=== PATIENT | female | born 1970 | race Caucasian/White ===

== ENCOUNTER 2018-09-27 15:25 | Emergency (ER) | payer OTHER, SELFPAY ==
[2018-09-27 15:27] VITALS: BP 160/89; PULSE 83; RESP 18; TEMP 36.6; O2SAT 100; BMI 34.9
[2018-09-27 15:30] VITALS: TEMP 36.6; O2SAT 100
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
[2018-09-27] MEDS: Diphth,Pertuss(Acell),Tet Vac 0.5 ML Vial IM (16:40)
[2018-09-27 17:32] VITALS: PULSE 88; RESP 16; O2SAT 100
[2018-09-27 18:54] VITALS: BP 148/74; PULSE 71; RESP 16; O2SAT 98
== END 2018-09-27 18:56 | disposition home or self-care (01) ==
PROVIDERS: Emergency Provider Emergency Medicine
DX: S02.31XA Fracture of orbital floor, right side, initial encounter for closed fracture (principal); S01.111A Laceration without foreign body of right eyelid and periocular area, initial encounter; S00.31XA Abrasion of nose, initial encounter; S00.511A Abrasion of lip, initial encounter; T14.8XXA Other injury of unspecified body region, initial encounter; Z72.0 Tobacco use; V43.52XA Car driver injured in collision with other type car in traffic accident, initial encounter; W22.11XA Striking against or struck by driver side automobile airbag, initial encounter; Y93.I9 Activity, other involving external motion; Y92.410 Unspecified street and highway as the place of occurrence of the external cause; Y99.8 Other external cause status
CPT/HCPCS: 12011; 70450; 70486; 73140; 90715; 99285

== ENCOUNTER 2018-09-29 17:37 | Emergency (ER) | payer OTHER, SELFPAY ==
[2018-09-29 17:39] VITALS: BP 135/76; PULSE 105; RESP 17; TEMP 36.8; O2SAT 96; BMI 34.1
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
--- NOTE | 2018-09-29 18:09 | ED.DEP ---
ED Disposition - Plan for ED Patient: Instructions: ED Fx Foot Prescriptions: Oxycodone HCl/Acetaminophen [Percocet 5/325] 1 tab PO Q6H PRN PRN 3 Days #12 tab PRN Reason: Pain Referrals: Care Physician,No Primary [Primary Care Provider] - Santiago Barnes DPM [STAFF PHYSICIAN] - 3-5 Days
== END 2018-09-29 18:30 | disposition home or self-care (01) ==
LOC: ED 18:18
PROVIDERS: Emergency Provider Emergency Medicine
DX: S92.331A Displaced fracture of third metatarsal bone, right foot, initial encounter for closed fracture (principal); Z72.0 Tobacco use; V43.52XA Car driver injured in collision with other type car in traffic accident, initial encounter; Y93.I9 Activity, other involving external motion; Y92.410 Unspecified street and highway as the place of occurrence of the external cause; Y99.8 Other external cause status
CPT/HCPCS: 73630; 99284

== ENCOUNTER 2022-11-30 16:58 | Emergency (ER) | payer BC, SELFPAY ==
[2022-11-30 16:59] VITALS: BP 140/90; PULSE 93; RESP 16; TEMP 36.8; O2SAT 98; BMI 36.6
--- NOTE | 2022-11-30 18:47 | CT_ITS ---
INDICATION: headache EXAMINATION: CT BRAIN - CT Head or Brain W/O Contrast Injection TECHNIQUE: Multiple axial images were obtained of the head without intravenous contrast. A radiation dose optimization technique was used for this scan. IV Contrast dosage and agent: None. RADIATION DOSAGE (If Supplied By Facility): CTDIvol = ( 44.99 ) mGy, DLP = ( 1272.98 ) mGycm COMPARISON: FINDINGS: BRAIN PARENCHYMA: No intra- or extra-axial hemorrhage. No evidence of acute infarct. No intracranial mass or mass effect. There is preservation of the amaya/white matter interface. Posterior fossa structures are unremarkable. CSF SPACES: Appropriate for age. No hydrocephalus. Basal cisterns are patent. CALVARIUM, SKULL BASE, PARANASAL SINUSES AND MASTOID AIR CELLS: Clear. No discrete lytic or blastic abnormalities. ORBITS: Both globes, extraocular muscles, optic nerves and retrobulbar fat appear unremarkable. ASPECTS Score for Acute Strokes: 10 CT/Brain/Head without Contrast IMPRESSION: Negative Brain CT without contrast. Electronically Signed: Vel Archer MD, DERREK at 19:24 EDT ,
--- NOTE | 2022-11-30 18:47 | CT_ITS ---
INDICATION: neck pain EXAMINATION: CT CERVICAL SPINE - CT Spine Cervical W/O Contrast Injection TECHNIQUE: Helically acquired images were obtained of the cervical spine. 2D reformatted images were reviewed. A radiation dose optimization technique was used for this scan. IV Contrast dosage and agent: None. RADIATION DOSAGE (If Supplied By Facility): CTDIvol = ( 23.33 ) mGy, DLP = ( 1272.98 ) mGycm COMPARISON: FINDINGS: VERTEBRAE: Mild reversal of cervical lordosis due to degenerative disc disease. Mild disc osteophyte C4-5 and moderate C5-6. Moderate bilateral neural foraminal encroachment C5-6. No fracture or traumatic subluxation. No discrete lytic or blastic abnormality. Normal alignment. Normal craniocervical junction and cervicothoracic junction. DISCS and SPINAL CANAL: Loss of disc space height C4-5 severe C5-6. No critical stenosis. NECK SOFT TISSUES: No prevertebral soft tissue swelling. There is no cervical adenopathy. LUNG APICES: Clear. CT/Spine Cervical without Contras IMPRESSION: No evidence of acute cervical spinal fracture or spondylolisthesis. Electronically Signed: Vel Archer MD, DERREK at 19:36 EDT Reading Location ID and State: [facility] / [place] Tel , Service support ,
--- NOTE | 2022-11-30 18:50 | EDS_ITS ---
HPI <LEEANNA Heath - Last Filed: 11/30/22 21:12> History of Present Illness Chief Complaint: Other, Pain/Inj Narrative Narrative: 52-year-old female with no significant PMH presents with a headache and neck pain over the last 2 weeks. She feels like front of her neck and the back of her scalp is swollen. She briefly had a runny nose and sore throat so she thought it was allergies and tried to wait it out but even though these symptoms resolved she still has the pain. She gets a bitemporal throbbing with head pressure and her vision seems blurry for a second when moving her eyes. She has no visual field cuts or deficits. She has no fever or chills. She has bad teeth but denies dental pain or difficulty swallowing or breathing. She has been taking aspirin for the pain. She went to urgent care who sent her here for evaluation. PFSH <LEEANNA Heath - Last Filed: 11/30/22 21:12> PFSH Medical History no medical history Home Medications cyclobenzaprine 10 mg tablet 10 mg PO TID PRN Muscle Spasm #20 TABLETS 11/30/22 [Rx Last Taken Unknown] naproxen 500 mg tablet (Naprosyn) 500 mg PO BID PRN pain #20 tabs 11/30/22 [Rx Last Taken Unknown] Allergy/AdvReac Type Severity Reaction Status Date / Time morphine Allergy Rash Verified 09/29/18 17:38 hydrocodone bitartrate AdvReac Nausea Verified 11/30/22 17:01 [From Vicodin] Social History Smoking Status: Current every day smoker tobacco type: cigarettes ROS <LEEANNA Heath - Last Filed: 11/30/22 21:12> ROS ED ROS Narrative Constitutional: Negative for fever, chills, malaise. ENT: Negative for sore throat, ear pain. CVS: Negative for palpitations, chest pain, syncope. Respiratory: Negative for shortness of breath, cough. GI: Negative for abdominal pain, nausea, vomiting. Neuro: Positive for headache, negative for motor/sensory dysfunction. EXAM <LEEANNA Heath Last Filed: 11/30/22 21:12> Physical Exam Narrative Exam Narrative: CONST: Patient sitting in no acute distress. EYES: Normal inspection. PERRLA, EOMI. ENT: Normal inspection, moist mucous membranes. Multiple missing teeth and poor dentition but she has no dental tenderness, no signs of periapical abscess, no trismus or tongue elevation, sublingual space is soft, airway patent with midline uvula. NECK: Normal inspection. Trachea midline, no trismus, no palpable lymphadenopathy. RESP: No respiratory distress, CTAB. CVS: Regular rate and rhythm, no murmur, no gallop. SKIN: Color normal, no rash, warm, dry, intact. EXTREMITIES: Normal appearance, no pedal edema. NEURO: Oriented x4. PSYCH: Normal affect. Const Vital Signs: 11/30/22 16:59 11/30/22 18:16 11/30/22 20:00 Temperature 98.2 F Temperature Source Temporal Pulse Rate 93 75 Respiratory Rate 16 18 Respiratory Effort Normal Non-Labored Blood Pressure 140/90 H Blood Pressure Mean 106 Pulse Ox 98 97 Oxygen Delivery Method Room Air Room Air 11/30/22 21:46 Temperature Temperature Source Pulse Rate 76 Respiratory Rate 18 Respiratory Effort Blood Pressure 126/68 H Blood Pressure Mean Pulse Ox 98 Oxygen Delivery Method <Dr. Fitz Feldman DO - Last Filed: 11/30/22 21:49> Physical Exam Const Vital Signs: 11/30/22 16:59 11/30/22 18:16 11/30/22 20:00 Temperature 98.2 F Temperature Source Temporal Pulse Rate 93 75 Respiratory Rate 16 18 Respiratory Effort Normal Non-Labored Blood Pressure 140/90 H Blood Pressure Mean 106 Pulse Ox 98 97 Oxygen Delivery Method Room Air Room Air 11/30/22 21:46 Temperature Temperature Source Pulse Rate 76 Respiratory Rate 18 Respiratory Effort Blood Pressure 126/68 H Blood Pressure Mean Pulse Ox 98 Oxygen Delivery Method [facility] <LEEANNA Heath - Last Filed: 11/30/22 21:12> [facility] Narrative Medical decision making narrative: Patient has had a headache and neck pain for 2 weeks. Appears well and nontoxic with unremarkable vital signs. I cannot appreciate any swelling of her head or neck that she indicates. She has an unremarkable HEENT exam within some poor dentition but she is not tender over the teeth or gums. She has no signs of periapical abscess. There is no meningismus and she is neurologically intact. CT scans of the head and neck were obtained and are unremarkable and patient was treated symptomatically with Toradol. Patient signed over to the attending for disposition. Radiography Diagnostic Testing: Clinical Impression(s) from Imaging Studies Brain CT 11/30/22 18:47 IMPRESSION: Negative Brain CT without contrast. Electronically Signed: Vel Archer MD, JD at 19:24 EDT , Cervical Spine CT 11/30/22 18:47 IMPRESSION: No evidence of acute cervical spinal fracture or spondylolisthesis. Electronically Signed: Vel Archer MD, JD at 19:36 EDT , <Dr. Fitz Feldman, DO - Last Filed: 11/30/22 21:49> [facility] MDM Narrative Medical decision making narrative: Patient has had a headache and neck pain for 2 weeks. Appears well and nontoxic with unremarkable vital signs. I cannot appreciate any swelling of her head or neck that she indicates. She has an unremarkable HEENT exam within some poor dentition but she is not tender over the teeth or gums. She has no signs of periapical abscess. There is no meningismus and she is neurologically intact. CT scans of the head and neck were obtained and are unremarkable and patient was treated symptomatically with Toradol. Patient signed over to the attending for disposition. This patient was seen with a PA/SENIOR IT SECURITY ANALYST Individually assessed they patient including history and physical. I have reviewed everything on the chart that is available and agree with the documentation provided by the PA/SENIOR IT SECURITY ANALYST including discussion about the assessment, treatment plan, discussion, and return precautions. Patient seen and evaluated. No red flag signs or symptoms. CT imaging is normal. Patient was given a shot of Toradol for her pain. She is given cyclobenzaprine and Naprosyn for home. Recommend outpatient follow-up. Return precautions discussed. Radiography Diagnostic Testing: Clinical Impression(s) from Imaging Studies Brain CT 11/30/22 18:47 IMPRESSION: Negative Brain CT without contrast. Electronically Signed: Vel Archer MD, JD at 19:24 EDT , Cervical Spine CT 11/30/22 18:47 IMPRESSION: No evidence of acute cervical spinal fracture or spondylolisthesis. Electronically Signed: Vel Archer MD, DERREK at 19:36 EDT , Discharge Plan Triage Chief Complaint: Other, Pain/Inj ED Midlevel Provider: Azra Lin ED Provider: Fitz Feldman Dx/Rx/DC Orders Instructions: Self-Care for Headaches, ED Neck Sprain or Strain Prescriptions: New naproxen [Naprosyn] 500 mg tablet 500 mg PO BID PRN (Reason: pain) Qty: 20 0RF cyclobenzaprine 10 mg tablet 10 mg PO TID PRN (Reason: Muscle Spasm) Qty: 20 0RF Primary Care Provider: Care Physician,No Primary Referrals: Care Physician,No Primary [Primary Care Provider] - Disposition Disposition: Home, Self Care Discharge Date/Time: 11/30/22 21:48
[2022-11-30] MEDS: Ketorolac 15 MG/ML Vial IM (19:53)
[2022-11-30 20:00] VITALS: PULSE 75; RESP 18; O2SAT 97
[2022-11-30 21:46] VITALS: BP 126/68; PULSE 76; RESP 18; O2SAT 98
== END 2022-11-30 21:48 | disposition home or self-care (01) ==
PROVIDERS: Emergency Provider Student in an Organized Health Care Education/Training Program; Visit Provider Student in an Organized Health Care Education/Training Program
DX: R51.9 Headache, unspecified (principal); F17.210 Nicotine dependence, cigarettes, uncomplicated; R22.1 Localized swelling, mass and lump, neck; M54.2 Cervicalgia
CPT/HCPCS: 70450; 72125; 96372; 99282